=== PATIENT | male | born 1965 | race Caucasian/White ===

== ENCOUNTER → 2018-09-28 | Outpatient (CLI) | payer BC ==
--- NOTE | 2018-09-28 17:07 | XR ---
EXAMINATION TYPE: XR lumbar spine 2 or 3V DATE OF EXAM: 09/28/2018 COMPARISON: None HISTORY: Low back pain TECHNIQUE: Three-view lumbar spine FINDINGS: Degenerative disc changes are present throughout the lumbar spine. There is greater disc sp karla narrowing posteriorly at L4-5 and to the L5-S1 disc level. Spondylosis is present. There 5 lumbar-type vertebral bodies. Pedicles are intact. IMPRESSION: 1. Degenerative disc changes greatest at L4-5 L5-S1.
--- NOTE | 2018-09-28 17:08 | US ---
EXAMINATION TYPE: US kidneys/renal and bladder DATE OF EXAM: 09/28/2018 COMPARISON: NONE CLINICAL HISTORY: N20.0 Kidney stones. Intermittent bilateral flank and pelvic pain x couple months EXAM MEASUREMENTS: Right Kidney: 11.5 x 6.5 x 5.8 cm Left Kidney: 11.8 x 5.9 x 6.0 cm Right Kidney: no hydronephrosis or masses seen Left Kidney: no hydronephrosis or masses seen Bladder: wnl Bilateral Jets seen: yes IMPRESSION: 1. Normal renal ultrasound
== END | disposition home or self-care (01) ==
LOC: RADUSWWP 07:02
PROVIDERS: ATTEND Internal Medicine Geriatric Medicine
DX: M51.37 Other intervertebral disc degeneration, lumbosacral region (principal); Z87.442 Personal history of urinary calculi
CPT/HCPCS: 72100; 76770

== ENCOUNTER → 2018-10-27 | Outpatient (CLI) | payer BC ==
--- NOTE | 2018-10-27 11:20 | MR ---
EXAMINATION TYPE: MR lumbar spine wo con DATE OF EXAM: 10/27/2018 COMPARISON: Lumbar spine radiographs dated 09/28/2018 HISTORY: Pain and Tingling, low back and Bilateral legs TECHNIQUE: Multiplanar, multisequence images of the lumbar spine were acquired without intravenous contrast. FINDINGS: The lumbar spine vertebral bodies maintain normal vertebral body height and alignment. Patc hy bone marrow signal is seen throughout although within normal limits. Modic type II degenerative en dplate changes are present at L1 and large Schmorl's node effaces the and inferior endplate of L3 ant eriorly. Multilevel disc desiccation is seen. Conus medullaris is unremarkable terminating at L1. L1-L2: There is a broad-based disc bulge without spinal canal stenosis or neural foraminal narrowing. Mild facet arthropathy is seen at this level. L2-L3: There is a broad-based disc bulge and mild facet arthropathy without resultant spinal canal st enosis or neural foraminal narrowing. L3-L4: There is a broad-based disc bulge and mild facet arthropathy resulting in mild bilateral neura l foraminal narrowing without spinal canal stenosis. L4-L5: There is a broad-based disc bulge, facet arthropathy and minimal ligamentum flavum buckling re sulting in mild to moderate left and mild right neural foraminal narrowing. No spinal canal stenosis. L5-S1: There is a small central disc herniation superimposed upon a broad-based disc bulge that creat es mild bilateral neural foraminal narrowing. Central annular tear is also seen. No spinal canal sten osis. IMPRESSION: 1. Small central disc herniation at L5-S1 that in combination with degenerative disc disease create m ild bilateral neural foraminal narrowing. 2. No spinal canal stenosis throughout the lumbar spine. 3. Multilevel degenerative disc disease of the lumbar spine results in mild bilateral neural foramina l narrowing at L3-L4, mild to moderate left neural foraminal narrowing at L4-L5 and mild right neural foraminal narrowing at L4-L5.
== END | disposition home or self-care (01) ==
LOC: RADMRIMAIN 10:02
PROVIDERS: ATTEND Internal Medicine Geriatric Medicine
DX: M99.73 Connective tissue and disc stenosis of intervertebral foramina of lumbar region (principal); M99.74 Connective tissue and disc stenosis of intervertebral foramina of sacral region; M51.27 Other intervertebral disc displacement, lumbosacral region; M51.37 Other intervertebral disc degeneration, lumbosacral region; M51.36 Other intervertebral disc degeneration, lumbar region
CPT/HCPCS: 72148